=== PATIENT | male | born 1955 | race Caucasian/White ===

== ENCOUNTER 2017-04-25 11:15 | Inpatient (IN) | payer BC ==
[2017-03-30 13:17] VITALS: Ht 177.8 cm; Wt 96.2 kg
--- NOTE | 2017-03-30 13:29 | HISTORY & PHYSICAL EXAMINATION ---
DATE OF ADMISSION: 04/25/2017 CHIEF COMPLAINT: Right knee pain. HISTORY OF PRESENT ILLNESS: Mr. Abreu is a 61-year-old male with a 3-year history of right knee pain. The patient rates his pain a 09/16. He has pain with his daily activities. He has limited standing and walking tolerance. Pain is worse with weightbearing. The patient has had injections, NSAID and home exercise program without relief. He has failed conservative treatment and is scheduled for right total knee arthroplasty. PAST MEDICAL HISTORY: Osteoarthritis. He denies heart disease, diabetes or DVT. PAST SURGICAL HISTORY: Hernia repair, right Achilles tendon repair and right knee arthroscopy. SOCIAL HISTORY: The patient drinks 12 drinks per week. He denies tobacco use. He lives in a single story home. He is and works as [employer] project manager. FAMILY HISTORY: Negative for DVT. MEDICATIONS: Fish oil, flaxseed oil, garlic, vitamin D, aspirin, and glucosamine chondroitin. ALLERGIES: None. REVIEW OF SYSTEMS: See HPI. Ten other systems reviewed, all negative. PHYSICAL EXAMINATION: VITAL SIGNS: Height 5 feet 10 inches, weight 213 pounds, BMI 31. GENERAL: This is a well-developed, well-nourished male who is alert and oriented x3. Mood and affect are appropriate. HEAD, EYES, EARS, NOSE, AND THROAT: Normocephalic, atraumatic. Mucous membranes are moist and intact. NECK: Supple without lymphadenopathy. HEART: Regular rate and rhythm without murmurs, rubs or gallops. LUNGS: Clear to auscultation without wheezes or rhonchi. ABDOMEN: Soft and nontender. Bowel sounds are equal and active. EXTREMITIES: He has neutral alignment. He has moderate effusion. Range of motion is from 0-120 degrees. He has +1 to 2 laxity. He is neurovascularly intact with +5/5 strength. X-RAY EXAMINATION: AP and lateral views show joint space narrowing and osteophyte formation. IMPRESSION: Degenerative joint disease, right knee. PLAN: The patient will be admitted for a right total knee arthroplasty. We will plan on aspirin for DVT prophylaxis. The patient will likely have [facility] nurses upon discharge versus outpatient PT.
[2017-03-30 13:37] LABS: BASO % 0.7 %; BASO ABS # 0.05 K/uL (0-0.2); EOS ABS # 0.22 K/uL (0-0.5); HEMATOCRIT 43.7 % (42-52); HEMOGLOBIN 15.3 g/dL (14.0-18.0); IG# 0.05 K/uL (0.00-0.02); LYMPH % 27.9 %; LYMPH ABS # 2.05 K/uL (1.2-3.4); MEAN CORPUSCULAR HEMOGLOBIN 31.9 pg (25-34); MEAN PLATELET VOLUME 10.7 fL (7.4-10.4); MONO % 7.6 %; MONO ABS # 0.56 K/uL (0.11-0.59); NEUT % 60.1 %; NEUT ABS # 4.41 K/uL (1.4-6.5); PLATELET COUNT 213 K/uL (130-400); RED CELL DISTRIBUTION WIDTH CV 12.5 % (11.5-14.5); RED CELL DISTRIBUTION WIDTH SD 41.8 fL (36.4-46.3); WHITE BLOOD COUNT 7.34 K/uL (4.8-10.8)
--- NOTE | 2017-03-30 13:38 | PAT Medication Instructions ---
Service Date Mar 30, 2017. Current Home Medication List Aspirin (Aspirin Ec), 81 MG PO QAM Cholecalciferol (Vitamin D3), 1 TAB PO QAM Fish Oil (Elberta-3), 3 CAP PO QAM Flaxseed (Linseed) (Flax Seed Oil), 1 TAB PO QAM Garlic (Garlic), 1 TAB PO QAM Glucosamine Sulfate (Glucosamine), 1,000 MG PO QAM Medication Instructions For Your Scheduled Surgery - Hold the following medications 2 weeks prior to surgery: Fish Oil (Elberta-3), 3 CAP PO QAM Flaxseed (Linseed) (Flax Seed Oil), 1 TAB PO QAM Garlic (Garlic), 1 TAB PO QAM Glucosamine Sulfate (Glucosamine), 1,000 MG PO QAM - Hold the following medications the morning of surgery: Cholecalciferol (Vitamin D3), 1 TAB PO QAM - Take the following medications the morning of surgery with a sip of water OTHERWISE NOTHING TO EAT OR DRINK AFTER MIDNIGHT: Aspirin (Aspirin Ec), 81 MG PO QAM If you have any questions please call us at [phone] or [phone] or [phone]
[2017-03-30 13:46] LABS: PTT PATIENT 25.8 SECONDS (21.0-31.0)
--- NOTE | 2017-03-30 13:54 | DIAGNOSTIC IMAGING REPORT ---
CHEST 2 VIEWS ROUTINE HISTORY: 61 years-old Male pat preoperative exam. No acute chest complaints. COMPARISON: None available TECHNIQUE: PA and lateral views of the chest FINDINGS: Cardiac mediastinal and hilar silhouettes are within normal limits. No pneumothorax, pleural effusion or focal airspace consolidation. Bones appear grossly intact. IMPRESSION: No acute process. The above report was generated using voice recognition software. It may contain grammatical, syntax or spelling errors. Electronically signed by: Torres Shore M.D. 03/30/2017 1:53 PM Dictated Date/Time: 03/30/2017 1:51 PM
[2017-03-30 14:21] LABS: ALBUMIN 3.8 gm/dl (3.4-5.0); CALCIUM 8.9 mg/dl (8.5-10.1); CREATININE 1.04 mg/dl (0.60-1.40); POTASSIUM 4.4 mmol/L (3.5-5.1)
[2017-03-31 07:08] LABS: HEMOGLOBIN A1C 5.3 % (4.5-5.6)
[~2017-04-25] VITALS: Ht 177.8 cm; Wt 96.2 kg
[2017-04-25] MEDS: TRANEXAMIC ACID INJ 1,000 MG in SYRINGE 0 ML IV SCH ×2 (06:30→13:02)
[~2017-04-25 11:15] MED LIST: ACETAMINOPHEN 500 MG TAB PO SCH; ASPI81TA28 PO; BUPIVACAINE 0.25% 30 ML VIAL ONE; BUPIVACAINE 0.5 % 5 MG/1 ML PF 10ML VIAL ONE; CEFAZOLIN 2000MG IV PUSH 10 ML IV SCH; CeleBREX 200 MG CAP PO SCH; DEXAMETHASONE 4 MG TAB PO SCH; FAMOTIDINE 20 MG TAB PO SCH; FENTANYL CITRATE INJ 50 MCG/1 ML 2 ML VIAL ONE; FLAX10007 PO; GABAPENTIN 300 MG CAP PO SCH; GARL1TAB8 PO; GLUC10007 PO; LACTATED RINGER'S 1000ML 1,000 ML IV SCH; LACTATED RINGER'S 1000ML 500 ML IV SCH; LACTATED RINGER'S 1000ML IV SCH; METOCLOPRAMIDE HCL 10 MG TAB PO SCH; MIDAZOLAM HCL 1 MG/ML 2ML VIAL ONE; OMEG10007 PO; ROPIVACAINE 5MG/ML 30 ML 150 MG, BUPIVACAINE 0.5% MPF INJ 30 ML, EpINEphrine HCL INJ 0.... INFIL SCH; VTMD1000 PO
--- NOTE | 2017-04-25 12:03 | History & Physical Bridge Note ---
H&P Re-Evaluation Bridge Note: I have examined the patient, reviewed the History & Physical and in the interval since the performance of the History & Physical I have noted the following changes of clinical significance: No changes noted
[2017-04-25 12:23] VITALS: BP 142/88; PULSE 53; TEMP 36.6; O2SAT 97
[2017-04-25] MEDS ORDERED: ORTHO JOINT ANESTHETIC ONE (14:06)
[2017-04-25] MEDS ORDERED: BACITRACIN 50000 UNIT VIAL ONE (14:06)
[2017-04-25] MEDS ORDERED: POVIDONE-IODINE OP SOLN 30 ML BTL ONE (14:06)
[2017-04-25] MEDS ORDERED: PROPOFOL IV EMULSION 10 MG/ML 20 ML VIAL IV ONE (14:49)
[2017-04-25] MEDS ORDERED: MIDAZOLAM HCL 1 MG/ML 2ML VIAL ONE (14:49)
[2017-04-25] MEDS ORDERED: ATROPINE SULFATE 0.1 MG/ML 5ML SYR IV PRN (15:15)
[2017-04-25] MEDS ORDERED: EpHEDrine SULFATE INJ 50 MG/ML AMP IV PRN (15:15)
[2017-04-25] MEDS ORDERED: BISACODYL 10 MG SUPP PR PRN (15:45)
[2017-04-25] MEDS ORDERED: MAGNESIUM HYDROXIDE SUSP 30 ML UDC PO PRN (15:45)
[2017-04-25] MEDS ORDERED: ONDANSETRON INJ 2 MG/ML 2 ML VIAL IV PRN (15:45)
[2017-04-25] MEDS ORDERED: SOD PHOSPHATE/SOD BIPHOSPHATE ENEMA 132 ML BTL PR PRN (15:45)
[2017-04-25] MEDS ORDERED: KETOROLAC TROMETHAMINE 30 MG/ML VIAL IV. PRN (15:45)
[2017-04-25] MEDS ORDERED: ZOLPIDEM TARTRATE 5 MG TAB PO PRN (15:45)
[2017-04-25] MEDS ORDERED: OXYCODONE HCL IR 5 MG TAB (IMMEDIATE RELEASE) PO PRN (15:45)
[2017-04-25] MEDS ORDERED: MoRPHine SULFATE 2 MG/ML CARP IV PRN (15:45)
[2017-04-25] MEDS ORDERED: ALUMINUM/MAGNESIUM/SIMETH (MAALOX MAX) 30 ML UDC PO PRN (15:45)
--- NOTE | 2017-04-25 15:49 | [facility] Operative Report ---
Operative Report Operative Date Apr 25, 2017. Pre-Operative Diagnosis Degenerative Joint Disease, Right Knee Post-Operative Diagnosis Degenerative Joint Disease, Right Knee Procedure(s) Performed Right Total Knee Arthroplasty utilizing Morris & Nephew journey 2 patient matched total knee arthroplasty size 8 femur a tibia 12 Aleksandra [address] Yadav Conditioner Tumbler Operator Surgeon(s) Nan Wadsworth PA-C Estimated Blood Loss 5ml Findings Patient presents severe end-stage DJD varus alignment subchondral sclerosis cystic changes marginal osteophytes failed attempts at conservative management including physical therapy anti-inflammatories relative rest activity modification bracing presents for total knee arthroplasty Specimens A. right knee bone and tissue Complication(s) None Disposition Recovery Room / PACU Indications Patient presents with severe end-stage Tri-Chlor metal degenerative joint disease of the right knee spell times a conservative management including physical therapy anti-inflammatories relative rest activity modification x-rays revealed some marginal osteophytes varus alignment on the bone changes subchondral cystic changes with sclerosis. Description of Procedure After proper prepping and draping of the Right lower extremity anterior midline incision was made over the region of the extensor extensor mechanism after meticulous hemostasis was obtained and maintained in subcutaneous tissues a medial parapatellar incision was made The patella was subluxed lateralward the medial lateral gutter were cleaned from any hypertrophic synovitis and scar tissue of the distal femoral block was placed and the distal femoral osteotomy cut was made subsequently the chamfers anterior and posterior osteotomy cuts were made utilizing the 4-in-1 block the tibia was subsequently subluxed anteriorward medial and ateral meniscal remnants were excised in their entirety remnants of the anterior and posterior cruciate ligaments were excised in their entirety excellent exposure of the proximal tibia was obtained the tibial osteotomy guide was placed on the proximal tibial osteotomy cut was made once again the knee was irrigated with copious amounts of sterile saline solution the patella was subsequently everted lateralward thickened scar tissue around the patella was removed the patella was subsequently cut utilizing a freehand technique and was drilled prepared for final preparation and placement of patella socially flexion-extension gaps were checked and the equal and symmetric trials were placed to the appropriate femoral and tibial trials with poly-spacer being placed for equal flexion and extension gaps and full range of motion including extension to 0 and flexion to 140 the trial components after having been taken to recovery range of motion was subsequently removed meticulous hemostasis was obtained and maintained subsequently a knee block injection of joint cocktail including ropivacaine 0.5% 150 mg. Bupivacaine 0.5 % epinephrine 1-200,030 mL's toradol 30 mg dexamethasone 4 mg ketamine 10 mg clonidine 100 micrograms normal saline solution 30 mg was infiltrated into the soft tissues of the posterior knee medial lateral gutters and periosteal synovium special attention was paid to protect neurovascular structures at all times subsequently trial components having been removed the knee was irrigated with sterile saline solution. debris was removed the proximal tibia was subsequently prepared and was made ready for the placement of the tibial component tibial component was also cemented and tamped into position the femoral component was subsequently placed and cemented in the position the patellar component was subsequently cemented in position because hemostasis once again obtained and maintained wound having been thoroughly irrigated with debridement and debridement lavage was performed as well as a medial parapatellar incision closed with #1 Vicryl in interrupted fashion subcutaneous was closed with #2 Vicryl skin was closed with skin clips. PA-C was necessary for prepping and drapping as well as wound closure of deep fascia Sub cutaneous tissue and skin and was necessary for the case. A sterile compressive dressing was placed patient was taken to recovery in stable condition of report dictated by Leif I attest to the content of the Intraoperative Record and any orders documented therein. Any exceptions are noted below. I attest to the content of the Intraoperative Record and any orders documented therein. Any exceptions are noted below.
--- NOTE | 2017-04-25 16:42 | DIAGNOSTIC IMAGING REPORT ---
TWO VIEWS RIGHT KNEE CLINICAL HISTORY: Postoperative examination. FINDINGS: AP and crosstable lateral portable views of the right knee are obtained. A right knee arthroplasty is in near anatomic alignment. There has been undersurface remodeling of the patella. No acute fracture is seen. There are expected postoperative changes around the knee including skin clips, a surgical drain, soft tissue edema, and subcutaneous gas. IMPRESSION: Expected postoperative changes status post right knee arthroplasty. No acute fracture is seen. Electronically signed by: Emanuel Morales M.D. 04/25/2017 4:41 PM Dictated Date/Time: 04/25/2017 4:40 PM
--- NOTE | 2017-04-25 17:03 | Anesthesiology Progress Note ---
Anesthesia Post Op Note Date & Time Apr 25, 2017 at 17:02 Vital Signs Pain Intensity: 0 Vital Signs Past 12 Hours Date Time Temp Pulse Resp B/P (MAP) Pulse Ox O2 Delivery O2 Flow Rate FiO2 04/25/17 16:55 60 20 109/65 99 Nasal Cannula 2 04/25/17 16:45 61 20 111/64 99 Nasal Cannula 2 04/25/17 16:35 61 14 102/61 100 Nasal Cannula 2 04/25/17 16:25 65 12 104/60 100 Nasal Cannula 2 04/25/17 16:18 36.0 78 12 102/53 100 Oxymask 10 04/25/17 12:23 36.6 53 20 142/88 97 Room Air Notes Mental Status: alert / awake / arousable, participated in evaluation Pt Amnestic to Procedure: Yes Nausea / Vomiting: adequately controlled Pain: adequately controlled Airway Patency, RR, SpO2: stable & adequate BP & HR: stable & adequate Hydration State: stable & adequate Neuraxial Anesthesia: was administered, sensory block is resolving Anesthetic Complications: no major complications apparent
[2017-04-25 17:50] VITALS: BP 122/70; PULSE 63; TEMP 36.5; O2SAT 96
[2017-04-25] MEDS ORDERED: MoRPHine SULFATE 4 MG/ML 1 ML CARP\\VIAL IV PRN (18:00)
[2017-04-25] MEDS ORDERED: MoRPHine SULFATE 10 MG/ML CARP/VIAL IV PRN (18:00)
[2017-04-25 18:02] VITALS: BP 120/77; PULSE 61; O2SAT 92
[2017-04-25] MEDS: D5W AND 1/2NSS + 20MEQ KCL 1,000 ML IV SCH (18:21)
[2017-04-25 18:33] VITALS: BP 122/76; PULSE 66; TEMP 36.5; O2SAT 94
[2017-04-25 19:44] VITALS: BP 126/76; PULSE 63; TEMP 36.3; O2SAT 93
[2017-04-25] MEDS: DOCUSATE SODIUM 100 MG CAP PO SCH (20:45)
[2017-04-25] MEDS: ASPIRIN 81 MG ECTAB PO SCH (20:45)
[2017-04-25] MEDS: SENNA 8.6 MG TAB PO SCH (20:45)
[2017-04-25] MEDS: CEFAZOLIN IV 2,000 MG in SYRINGE 0 ML IV SCH (22:09)
[2017-04-25] MEDS: ACETAMINOPHEN 500 MG TAB PO SCH (22:09)
[2017-04-25 22:22] VITALS: BP 133/80; PULSE 64; TEMP 36.8; O2SAT 94
[2017-04-26 03:15] VITALS: BP 120/78; PULSE 66; TEMP 36.7; O2SAT 95
[2017-04-26] MEDS: D5W AND 1/2NSS + 20MEQ KCL 1,000 ML IV SCH ×2 (03:32→13:31)
[2017-04-26] MEDS: CEFAZOLIN IV 2,000 MG in SYRINGE 0 ML IV SCH (06:02)
[2017-04-26] MEDS: ACETAMINOPHEN 500 MG TAB PO SCH ×3 (06:02→21:46)
[2017-04-26 06:41] LABS: HEMATOCRIT 41.3 % (42-52); HEMOGLOBIN 14.7 g/dL (14.0-18.0); MEAN CELL VOLUME 89.6 fL (80-100); MEAN CORPUSCULAR HEMOGLOBIN 31.9 pg (25-34); MEAN CORPUSCULAR HGB CONC 35.6 g/dl (32-36); MEAN PLATELET VOLUME 11.3 fL (7.4-10.4); PLATELET COUNT 202 K/uL (130-400); RED CELL DISTRIBUTION WIDTH CV 12.6 % (11.5-14.5); RED CELL DISTRIBUTION WIDTH SD 40.3 fL (36.4-46.3); WHITE BLOOD COUNT 25.52 K/uL (4.8-10.8)
[2017-04-26 07:15] LABS: CALCIUM 9.2 mg/dl (8.5-10.1); POTASSIUM 4.4 mmol/L (3.5-5.1)
[2017-04-26] MEDS: TRAMADOL HCL 50 MG TAB PO PRN ×2 (07:46→17:55)
[2017-04-26 08:01] VITALS: BP 126/75; PULSE 55; TEMP 36.4; O2SAT 99
--- NOTE | 2017-04-26 08:05 | Orthopedic Progress Note ---
Orthopedic Progress Note Date of Service Apr 26, 2017. Subjective Post OP Day: 1 Reports: feeling well, pain controlled w PO medications, Denies: complaints, chest pain, SOB, nausea / vomiting, light headedness, calf pain Objective calves soft nontender, N/V intact, capillary refill less than 2 sec., dressing C /D/I, A&O x3, toes mobile, hemovac drainage (75cc ) Date Time Temp Pulse Resp B/P (MAP) Pulse Ox O2 Delivery O2 Flow Rate FiO2 04/26/17 08:01 36.4 55 16 126/75 (92) 99 Room Air 04/26/17 03:15 36.7 66 16 120/78 (92) 95 Room Air 04/25/17 22:22 36.8 64 16 133/80 (97) 94 Room Air 04/25/17 19:44 36.3 63 16 126/76 (93) 93 Room Air 04/25/17 19:30 Room Air 04/25/17 18:33 36.5 66 16 122/76 (91) 94 Room Air 04/25/17 18:02 61 16 120/77 (91) 92 2.0 04/25/17 17:50 Nasal Cannula 2.0 04/25/17 17:50 36.5 63 14 122/70 (87) 96 Nasal Cannula 2.0 04/25/17 17:50 Nasal Cannula 2.0 04/25/17 17:05 36.7 60 20 110/67 98 Nasal Cannula 2 04/25/17 16:55 60 20 109/65 99 Nasal Cannula 2 04/25/17 16:45 61 20 111/64 99 Nasal Cannula 2 04/25/17 16:35 61 14 102/61 100 Nasal Cannula 2 04/25/17 16:25 65 12 104/60 100 Nasal Cannula 2 04/25/17 16:18 36.0 78 12 102/53 100 Oxymask 10 04/25/17 12:23 36.6 53 20 142/88 97 Room Air Laboratory Results 24 Hours: Test 04/26/17 06:19 Hematocrit 41.3 % Hemoglobin 14.7 g/dL Prothromb Time International Ratio 1.0 Prothrombin Time 10.7 SECONDS Assessment & Plan Assessment: POD #1 s/p right tka -pt/ot -dvt proph with adonis/scd/asa -plan for d/c home OPPT Discharge Planning Discharge Planning: home with oppt DVT Prophylaxis: TEDs, SCDs, ASA
[2017-04-26] MEDS: DOCUSATE SODIUM 100 MG CAP PO SCH ×2 (08:37→20:39)
[2017-04-26] MEDS: MULTIVITAMIN TAB PO SCH (08:37)
[2017-04-26] MEDS: CHOLECALCIFEROL 1000 INTER.UNIT TAB PO SCH (08:37)
[2017-04-26] MEDS: ASPIRIN 81 MG ECTAB PO SCH ×2 (08:57→20:39)
[2017-04-26 10:13] VITALS: BP 101/58; PULSE 59; O2SAT 94
[2017-04-26 10:46] VITALS: TEMP 36.3
--- NOTE | 2017-04-26 10:53 | Anesthesiology Progress Note ---
Anesthesia Post Op Note Date & Time Apr 26, 2017 at 10:52 Vital Signs Vital Signs Past 12 Hours Date Time Temp Pulse Resp B/P (MAP) Pulse Ox O2 Delivery O2 Flow Rate FiO2 04/26/17 10:46 36.3 04/26/17 10:13 59 16 101/58 (72) 94 Room Air 04/26/17 08:01 36.4 55 16 126/75 (92) 99 Room Air 04/26/17 07:30 Room Air 04/26/17 03:15 36.7 66 16 120/78 (92) 95 Room Air Notes Mental Status: alert / awake / arousable, participated in evaluation Pt Amnestic to Procedure: Yes Nausea / Vomiting: adequately controlled Pain: adequately controlled Airway Patency, RR, SpO2: stable & adequate BP & HR: stable & adequate Hydration State: stable & adequate Neuraxial Anesthesia: was administered, sensory block resolved Anesthetic Complications: no major complications apparent
[2017-04-26 15:13] VITALS: BP 136/69; PULSE 69; TEMP 36.9; O2SAT 94
--- NOTE | 2017-04-26 15:31 | Discharge Instructions ---
Discharge Instructions Date of Service Apr 26, 2017. Admission Reason for Admission: Right Knee Osteoarthritis Discharge Discharge Diagnosis / Problem: Right Knee Djd Discharge Goals Goal(s): Decrease discomfort, Improve function, Increase independence Activity Recommendations Activity Limitations: per Instructions/Follow-up section Weightbearing Status: Right weightbearing (as tolerated) . Instructions / Follow-Up Instructions / Follow-Up ACTIVITY RECOMMENDATIONS: SELF CARE INSTRUCTIONS AFTER TOTAL KNEE REPLACEMENT A. You may need to continue a physical therapy program after discharge from the hospital. There are several options available to you. Your doctor will assist you in selecting the best one for you. 1. An out-patient facility 2 to 3 times a week for therapy or home therapy. 2. Continue working on all exercises taught to you in the hospital. Your goals should be to increase bending of your knee to 90 degrees and beyond and to fully straighten your knee. B. You may progress at your own pace from walking with a walker or crutches to a cane; then to no assistive devices. C. Make walking a part of your daily routine. Be up as much as comfortable with rest periods throughout the day. Rest with leg elevation is very important. Use the ice wrap frequently for the first 3-4 weeks. D. There are no restrictions on activities. You may ride in a car, shop, participate in manager of organizational development and all social activities. E. Wear the long elastic stockings (SHARRI hose) 20 hours a day for 2 weeks after surgery. They can be removed several times a day for laundering and for a bath. F. You may shower, no tub baths until cleared by your doctor. SPECIAL CARE INSTRUCTIONS: VERY IMPORTANT TO READ AND REVIEW A. There are a few signs you need to watch for after you are home. Call [facility] if you notice any of the followin. Increased severe knee pain. Some pain is expected especially when you exercise. 2. Increased swelling in your leg or knee; pain or swelling of the calf muscle in either lower leg. 3. Any fluid drainage from the incision. 4. Shortness of breath or chest pain. B. Please call [facility] at if you have any concerns or questions about your operation or recovery. The doctor or his nurse will return your call promptly. C. You must take antibiotics before dental work, bladder, bowel or other surgery. Your doctor will provide you with a permanent care to carry describing this precaution. IMPORTANT: * REMEMBER TO TAKE ASPIRIN, 81 MG, TWICE DAILY FOR 4 WEEKS UNLESS OTHERWISE DIRECTED. THIS IS YOUR BLOOD THINNER. * HIGH RISK PATIENTS MAY BE PRESCRIBED A STRONGER BLOOD THINNER. THIS WILL BE PROVIDED AT DISCHARGE. * CALL IF INCREASED PAIN, REDNESS, DRAINAGE OR FEVER GREATER THAT 101. * WEAR SHARRI HOSE 20 HOURS PER DAY FOR 2 WEEKS. * Silverlon- This is a large adhesive bandage that contains silver ions. This helps your incision heal by fighting off bacteria and protecting it from the outside environment. You are permitted to shower with this dressing. This will remain on your incision for 7 days and then should be removed. Some visible blood or drainage through the dressing window is normal. If there is significant drainage or leaking noted before the 7 days notify your doctor's office immediately. Once removed, keep incision clean and dry. If there is any drainage or redness noted, please call your surgeon. . FOLLOW UP VISIT: If appointment is not already scheduled: Please call [facility] to make a follow-up appointment for 2 weeks after your surgery at . Current Hospital Diet Patient's current hospital diet: Regular Diet Discharge Diet Recommended Diet: Regular Diet Procedures Procedures Performed: Right Total Knee Arthroplasty utilizing Morris & Nephew journey 2 patient matched total knee arthroplasty size 8 femur a tibia 12 Aleksandra 35 oval patella Pending Studies Studies pending at discharge: no Laboratory Results Hemoglobin A1c Test 03/30/17 13:06 Range/Units Estimated Average Glucose 105 mg/dl Hemoglobin A1c 5.3 4.5-5.6 % Medical Emergencies . Who to Call and When: Medical Emergencies: If at any time you feel your situation is an emergency, please call 911 immediately. . Non-Emergent Contact Non-Emergency issues call your: Surgeon Call Non-Emergent contact if: temperature is above 101.5, your pain is not controlled, your pain is worsening, wound has increased drainage, wound has increased redness . "Provider Documentation" section prepared by Mike Wadsworth. . VTE Core Measure Inpt VTE Proph given/why not?: Other Anticoagulation, T.E.D. Stockings, SCD's [place] Drug Monitoring Program Search Results: patient reviewed within database, no issues identified
[2017-04-26] MEDS: CeleBREX 200 MG CAP PO SCH (20:40)
[2017-04-26] MEDS: SENNA 8.6 MG TAB PO SCH (20:40)
[2017-04-26 22:52] VITALS: BP 127/73; PULSE 69; TEMP 36.9; O2SAT 96
[2017-04-27] MEDS: ACETAMINOPHEN 500 MG TAB PO SCH (05:58)
[2017-04-27 07:54] VITALS: BP 139/81; PULSE 59; TEMP 36.4; O2SAT 99
--- NOTE | 2017-04-27 08:23 | Orthopedic Progress Note ---
Orthopedic Progress Note Date of Service Apr 27, 2017. Subjective Post OP Day: 2 Reports: feeling well, Denies: chest pain, SOB, nausea / vomiting, light headedness, calf pain Objective calves soft nontender, N/V intact, capillary refill less than 2 sec., incision C /D/I, A&O x3, toes mobile Date Time Temp Pulse Resp B/P (MAP) Pulse Ox O2 Delivery O2 Flow Rate FiO2 04/27/17 07:54 36.4 59 16 139/81 (100) 99 Room Air 04/27/17 00:00 Room Air 04/26/17 22:52 36.9 69 17 127/73 (91) 96 Room Air 04/26/17 15:30 Room Air 04/26/17 15:13 36.9 69 18 136/69 (91) 94 Room Air 04/26/17 10:46 36.3 04/26/17 10:13 59 16 101/58 (72) 94 Room Air Assessment & Plan Assessment: POD #2 s/p right tka -pt/ot -dvt proph with adonis/scd/asa -plan for d/c home OPPT . DC HOME TODAY. - PAIN MANAGEMENT- SEEMS TO BE DOING WELL WITH JUST TRAMADOL. WILL PRESCRIBE UPON DC. WILL ALSO GIVE DOUGLAS JUST IN CASE. Discharge Planning Discharge Planning: home with oppt DVT Prophylaxis: TEDs, SCDs, ASA
[2017-04-27] MEDS ORDERED: ASPI81TA28 PO (08:26)
[2017-04-27] MEDS ORDERED: ACET-24 PO (08:26)
[2017-04-27] MEDS ORDERED: CLB200 PO (08:26)
[2017-04-27] MEDS ORDERED: ULT50X PO (08:26)
[2017-04-27] MEDS ORDERED: SENN-61 PO (08:26)
[2017-04-27] MEDS ORDERED: ONDA8TAB6 PO (08:26)
[2017-04-27] MEDS ORDERED: RXC5 PO (08:26)
[2017-04-27] MEDS: MULTIVITAMIN TAB PO SCH (09:07)
[2017-04-27] MEDS: CHOLECALCIFEROL 1000 INTER.UNIT TAB PO SCH (09:07)
[2017-04-27] MEDS: ASPIRIN 81 MG ECTAB PO SCH (09:07)
[2017-04-27] MEDS: CeleBREX 200 MG CAP PO SCH (09:07)
[2017-04-27] MEDS: DOCUSATE SODIUM 100 MG CAP PO SCH (09:07)
[2017-04-27 09:43] VITALS: BP 139/81; PULSE 59; TEMP 36.4; O2SAT 99
[2017-04-27] MEDS: TRAMADOL HCL 50 MG TAB PO PRN (10:58)
== END 2017-04-27 11:00 | disposition home or self-care (01) | DRG 470 ==
LOC: C.ACU 11:15 → C.MSW 12:15 → ENRESERV 17:03
PROVIDERS: ADMIT Orthopaedic Surgery; ATTEND Orthopaedic Surgery
PROC: 0SRC0J9 Replacement of Right Knee Joint with Synthetic Substitute, Cemented, Open Approach (ICD-10-PCS; principal; 2017-04-25 13:30)
DX: M17.11 Unilateral primary osteoarthritis, right knee (principal); Z79.82 Long term (current) use of aspirin; Z79.899 Other long term (current) drug therapy